=== PATIENT | female | born 1965 | race Asian ===

== ENCOUNTER → 2019-05-03 | Outpatient (CLI) | payer BC | LOC: MAMMO 14:18 | PROVIDERS: ATTEND Obstetrics & Gynecology | DX: Z12.31 Encounter for screening mammogram for malignant neoplasm of breast (principal) | CPT/HCPCS: 77067 ==

== ENCOUNTER → 2019-05-21 | Outpatient (CLI) | payer BC | LOC: MAMMO 13:14 | PROVIDERS: ATTEND Obstetrics & Gynecology | DX: N63.10 Unspecified lump in the right breast, unspecified quadrant (principal) ==